=== PATIENT | female | born 1945 | race Caucasian/White ===

== ENCOUNTER → 2018-10-29 08:25 | Outpatient (CLI) | payer MEDICARE, SELFPAY ==
--- NOTE | 2018-10-29 08:31 | US_ITS ---
STUDY: RENAL ULTRASOUND - COMPLETE REASON FOR EXAM: Female, 73 years old. Chronic kidney disease TECHNIQUE: Ultrasound evaluation of the kidneys was performed with real-time and static gomez-scale imaging. COMPARISON: None available. FINDINGS: RIGHT KIDNEY: Normal location of the right kidney, which is normal in size. The right kidney measures 8 cm. Cortical thinning is present. There is no right renal mass or cyst. There are no right renal calculi. There is no right hydronephrosis. DISTAL RIGHT URETER: There is non-visualization of the distal right ureter. There is no demonstrated right ureterovesical junction calculus. There is a visualized right ureteral jet. LEFT KIDNEY: Normal location of the left kidney, which is normal in size. The left kidney measures 10 cm. Cortical thinning is present. There is a left renal 4.9 cm cyst. There are no left renal calculi. There is no left hydronephrosis. DISTAL LEFT URETER: There is non-visualization of the distal left ureter. There is no demonstrated left ureterovesical junction calculus. There is a visualized left ureteral jet. AORTA: No evidence of abdominal aortic aneurysm. I.V.C.: The IVC is patent. BLADDER: Mild diffuse bladder wall thickening is present. Probable fibroid incidentally noted in the pelvis measuring 4.2 x 4.5 x 4 cm. US/Kidney and Bladder IMPRESSION: No acute renal pathology. Bilateral renal cortical thinning and right renal atrophy. Left renal cyst. Mild urinary bladder wall thickening. Correlate clinically for hypertrophy or cystitis. Probable pelvic fibroid measuring 4.2 x 4.5 x 4 cm. If further clinical concern, consider dedicated pelvic ultrasound or MRI. Electronically Signed: Dipak Pedersen, at 17:05 EDT Tel , Service support ,
== END ==
PROVIDERS: Family Provider Family Medicine; PCP Family Medicine; Referring Provider Internal Medicine Nephrology; Visit Provider Internal Medicine Nephrology
DX: N18.4 Chronic kidney disease, stage 4 (severe) (principal)
CPT/HCPCS: 76770

== ENCOUNTER → 2019-03-24 10:04 | Outpatient (CLI) | payer MEDICARE, SELFPAY ==
[2019-03-24 11:02] LABS: Hematocrit 44.6 % (37-47); Hemoglobin 13.9 g/dL (12.0-15.0); Mean Corp Hgb Conc 31.2 g/dL (32-36); Mean Corpuscular Volume 89.7 fL (81-99); Platelet Count 241 K/mm3 (150-450); RBC Distribution Width CV 13.2 % (11.6-14.6); RBC Distribution Width SD 42.9 fl (35.1-43.9); Red Blood Count 4.97 M/mm3 (4.2-5.4); White Blood Count 5.1 K/mm3 (4.4-11.0)
[2019-03-24 11:49] LABS: Albumin, Serum 3.6 g/dL (3.2-5.0); BUN 41 mg/dL (7-18); BUN/Creat Ratio 20.8 RATIO (10-20); Calcium,Total 9.4 mg/dL (8.5-10.1); Chloride 107 mmol/L (98-107); Creatinine, Serum 1.97 mg/dL (0.55-1.02); EST Glomerular Filtration Rate 26 mL/min (>60); Est Glom Filt Rate - Afr Amer 32 mL/min (>60); Glucose 81 mg/dL (74-106); Potassium 4.5 mmol/L (3.5-5.1); Sodium Level 137 mmol/L (136-145)
[2019-03-24 11:55] LABS: PTHIN 89.1 pg/mL (18.4-80.1)
== END ==
LOC: LAB.FUTURE 10:05 → LAB 03-25 06:38
PROVIDERS: PCP Family Medicine; Referring Provider Internal Medicine Nephrology; Visit Provider Internal Medicine Nephrology
DX: N18.3 Chronic kidney disease, stage 3 (moderate) (principal)
CPT/HCPCS: 36415; 80069; 83970; 85027

== ENCOUNTER → 2019-04-08 10:07 | Outpatient (CLI) | payer MEDICARE, SELFPAY ==
[2019-04-08 10:54] LABS: Albumin, Serum 3.3 g/dL (3.2-5.0); BUN 32 mg/dL (7-18); Calcium,Total 9.1 mg/dL (8.5-10.1); Chloride 105 mmol/L (98-107); Creatinine, Serum 1.68 mg/dL (0.55-1.02); EST Glomerular Filtration Rate 32 mL/min (>60); Est Glom Filt Rate - Afr Amer 38 mL/min (>60); Glucose 91 mg/dL (74-106); Phosphorus 3.3 mg/dL (2.5-4.9); Potassium 4.6 mmol/L (3.5-5.1); Sodium Level 135 mmol/L (136-145)
== END ==
PROVIDERS: PCP Family Medicine; Referring Provider Internal Medicine Nephrology; Visit Provider Internal Medicine Nephrology
DX: N17.9 Acute kidney failure, unspecified (principal)
CPT/HCPCS: 36415; 80069

== ENCOUNTER → 2019-05-20 10:21 | Outpatient (CLI) | payer MEDICARE, SELFPAY ==
[2019-05-20 11:06] LABS: Hemoglobin 14.1 g/dL (12.0-15.0); Mean Corp Hgb Conc 31.3 g/dL (32-36); Mean Corpuscular Volume 89.3 fL (81-99); Mean Platelet Vol. 10.1 fl (6.2-12.0); Platelet Count 238 K/mm3 (150-450); RBC Distribution Width CV 13.5 % (11.6-14.6); RBC Distribution Width SD 44.2 fl (35.1-43.9); Red Blood Count 5.04 M/mm3 (4.2-5.4); White Blood Count 4.3 K/mm3 (4.4-11.0)
[2019-05-20 11:24] LABS: Protein, Urine (Random) 29.7 mg/dL (<11.9); Protein:Creat Ratio 223 mg/g CRE (0-200)
[2019-05-20 11:30] LABS: Albumin, Serum 3.6 g/dL (3.2-5.0); BUN 33 mg/dL (7-18); Calcium,Total 9.5 mg/dL (8.5-10.1); Chloride 104 mmol/L (98-107); Creatinine, Serum 1.74 mg/dL (0.55-1.02); EST Glomerular Filtration Rate 30 mL/min (>60); Est Glom Filt Rate - Afr Amer 37 mL/min (>60); Glucose 89 mg/dL (74-106); Phosphorus 3.4 mg/dL (2.5-4.9); Potassium 4.7 mmol/L (3.5-5.1); Sodium Level 137 mmol/L (136-145)
== END ==
LOC: LAB.FUTURE 10:22 → LAB 05-21 06:37
PROVIDERS: PCP Family Medicine; Referring Provider Internal Medicine Nephrology; Visit Provider Internal Medicine Nephrology
DX: N18.3 Chronic kidney disease, stage 3 (moderate) (principal)
CPT/HCPCS: 36415; 80069; 82570; 84156; 85027

== ENCOUNTER → 2019-07-24 10:02 | Outpatient (CLI) | payer MEDICARE, SELFPAY ==
[2019-07-24 12:38] LABS: Hematocrit 45.7 % (37-47); Hemoglobin 14.1 g/dL (12.0-15.0); Mean Corp Hgb Conc 30.9 g/dL (32-36); Mean Corpuscular Hgb 27.5 pg (27.0-32.0); Mean Corpuscular Volume 89.1 fL (81-99); Mean Platelet Vol. 9.9 fl (6.2-12.0); Platelet Count 278 K/mm3 (150-450); RBC Distribution Width CV 13.5 % (11.6-14.6); RBC Distribution Width SD 43.8 fl (35.1-43.9); Red Blood Count 5.13 M/mm3 (4.2-5.4); White Blood Count 4.2 K/mm3 (4.4-11.0)
[2019-07-24 12:39] LABS: Protein, Urine (Random) 23.4 mg/dL (<11.9); Protein:Creat Ratio 237 mg/g CRE (0-200)
[2019-07-24 12:52] LABS: Albumin, Serum 3.6 g/dL (3.2-5.0); BUN 45 mg/dL (7-18); BUN/Creat Ratio 23.4 RATIO (10-20); Calcium,Total 9.9 mg/dL (8.5-10.1); Chloride 103 mmol/L (98-107); Creatinine, Serum 1.92 mg/dL (0.55-1.02); EST Glomerular Filtration Rate 27 mL/min (>60); Est Glom Filt Rate - Afr Amer 33 mL/min (>60); Glucose 82 mg/dL (74-106); Potassium 4.7 mmol/L (3.5-5.1); Sodium Level 135 mmol/L (136-145)
[2019-07-24 13:02] LABS: PTHIN 85.5 pg/mL (18.4-80.1)
== END ==
PROVIDERS: PCP Family Medicine; Referring Provider Internal Medicine Nephrology; Visit Provider Internal Medicine Nephrology
DX: N17.9 Acute kidney failure, unspecified (principal); N18.3 Chronic kidney disease, stage 3 (moderate)
CPT/HCPCS: 36415; 80069; 82570; 83970; 84156; 85027

== ENCOUNTER → 2019-09-08 09:36 | Outpatient (CLI) | payer MEDICARE, SELFPAY ==
[2019-09-08 10:51] LABS: Albumin, Serum 3.3 g/dL (3.2-5.0); BUN 32 mg/dL (7-18); BUN/Creat Ratio 19.5 RATIO (10-20); Calcium,Total 8.8 mg/dL (8.5-10.1); Chloride 108 mmol/L (98-107); Creatinine, Serum 1.64 mg/dL (0.55-1.02); EST Glomerular Filtration Rate 32 mL/min (>60); Est Glom Filt Rate - Afr Amer 39 mL/min (>60); Glucose 103 mg/dL (74-106); Phosphorus 2.7 mg/dL (2.5-4.9); Potassium 4.1 mmol/L (3.5-5.1); Sodium Level 138 mmol/L (136-145)
== END ==
PROVIDERS: PCP Family Medicine; Referring Provider Internal Medicine Nephrology; Visit Provider Internal Medicine Nephrology
DX: N18.3 Chronic kidney disease, stage 3 (moderate) (principal)
CPT/HCPCS: 36415; 80069

== ENCOUNTER → 2019-12-11 09:27 | Outpatient (CLI) | payer MEDICARE, SELFPAY ==
[2019-12-11 10:38] LABS: Albumin, Serum 3.6 g/dL (3.2-5.0); BUN 33 mg/dL (7-18); BUN/Creat Ratio 18.3 RATIO (10-20); Calcium,Total 9.2 mg/dL (8.5-10.1); Chloride 107 mmol/L (98-107); EST Glomerular Filtration Rate 29 mL/min (>60); Est Glom Filt Rate - Afr Amer 35 mL/min (>60); Glucose 95 mg/dL (74-106); Phosphorus 2.8 mg/dL (2.5-4.9); Potassium 4.3 mmol/L (3.5-5.1); Sodium Level 137 mmol/L (136-145)
== END ==
PROVIDERS: PCP Family Medicine; Referring Provider Internal Medicine Nephrology; Visit Provider Internal Medicine Nephrology
DX: N18.30 Chronic kidney disease, stage 3 unspecified (principal)
CPT/HCPCS: 36415; 80069; 83970

== ENCOUNTER → 2020-08-25 14:17 | Outpatient (CLI) | payer MEDICARE, SELFPAY ==
[2020-08-25 16:09] LABS: Protein, Urine (Random) 9.9 mg/dL (<11.9); Protein:Creat Ratio 102 mg/g CRE (0-200)
[2020-08-25 16:17] LABS: PTHIN 61.6 pg/mL (18.4-80.1)
[2020-08-25 16:23] LABS: Albumin, Serum 3.7 g/dL (3.2-5.0); BUN 38 mg/dL (7-18); BUN/Creat Ratio 20.9 RATIO (10-20); Calcium,Total 9.9 mg/dL (8.5-10.1); Chloride 102 mmol/L (98-107); Creatinine, Serum 1.82 mg/dL (0.55-1.02); EST Glomerular Filtration Rate 29 mL/min (>60); Est Glom Filt Rate - Afr Amer 35 mL/min (>60); Glucose 83 mg/dL (74-106); Potassium 4.5 mmol/L (3.5-5.1); Sodium Level 136 mmol/L (136-145)
== END ==
PROVIDERS: PCP Family Medicine; Referring Provider Internal Medicine Nephrology; Visit Provider Internal Medicine Nephrology
DX: I12.9 Hypertensive chronic kidney disease with stage 1 through stage 4 chronic kidney disease, or unspecified chronic kidney disease (principal); N18.32 Chronic kidney disease, stage 3b
CPT/HCPCS: 36415; 80069; 82570; 83970; 84156

== ENCOUNTER 2021-06-01 10:07 | Outpatient (CLI) | payer MEDICARE, SELFPAY ==
[2021-06-01 11:35] LABS: Anion Gap 4 (5-15); BUN 31 mg/dL (7-18); BUN/Creat Ratio 19.6 RATIO (10-20); Calcium,Total 9.7 mg/dL (8.5-10.1); Chloride 107 mmol/L (98-107); Creatinine, Serum 1.58 mg/dL (0.55-1.02); EST Glomerular Filtration Rate 34 mL/min (>60); Est Glom Filt Rate - Afr Amer 41 mL/min (>60); Glucose 95 mg/dL (74-106); Potassium 4.7 mmol/L (3.5-5.1); Sodium Level 136 mmol/L (136-145)
== END 2021-06-01 23:59 | disposition home or self-care (01) ==
LOC: LAB 10:09
PROVIDERS: PCP Family Medicine; Referring Provider Internal Medicine Nephrology; Visit Provider Internal Medicine Nephrology
DX: I10 Essential (primary) hypertension (principal)
CPT/HCPCS: 36415; 80048

== ENCOUNTER → 2022-02-06 | Outpatient (CLI) | payer MEDICARE, SELFPAY ==
[2022-02-06 12:06] LABS: Hematocrit 44.2 % (37-47); Hemoglobin 13.7 g/dL (12.0-15.0); Mean Corpuscular Volume 90.4 fL (81-99); Mean Platelet Vol. 9.7 fl (6.2-12.0); Platelet Count 255 K/mm3 (150-450); RBC Distribution Width CV 14.2 % (11.6-14.6); RBC Distribution Width SD 47.4 fl (35.1-43.9); Red Blood Count 4.89 M/mm3 (4.2-5.4); White Blood Count 4.9 K/mm3 (4.4-11.0)
[2022-02-06 12:32] LABS: PTHIN 74.2 pg/mL (18.4-80.1)
[2022-02-06 12:34] LABS: Albumin, Serum 3.6 g/dL (3.2-5.0); BUN 26 mg/dL (7-18); BUN/Creat Ratio 15.4 RATIO (10-20); Chloride 106 mmol/L (98-107); Creatinine, Serum 1.69 mg/dL (0.55-1.02); EST Glomerular Filtration Rate 31 mL/min (>60); Est Glom Filt Rate - Afr Amer 38 mL/min (>60); Glucose 108 mg/dL (74-106); Phosphorus 2.8 mg/dL (2.5-4.9); Potassium 4.7 mmol/L (3.5-5.1); Sodium Level 137 mmol/L (136-145)
== END | disposition home or self-care (01) ==
LOC: LAB 11:28
PROVIDERS: PCP Family Medicine; Referring Provider Internal Medicine Nephrology; Visit Provider Internal Medicine Nephrology
DX: N18.32 Chronic kidney disease, stage 3b (principal)
CPT/HCPCS: 36415; 80069; 83970; 85027

== ENCOUNTER → 2023-02-01 | Outpatient (CLI) | payer MEDICARE, SELFPAY ==
[2023-02-01 12:48] LABS: Hematocrit 42.3 % (37-47); Hemoglobin 12.9 g/dL (12.0-15.0); Mean Corp Hgb Conc 30.5 g/dL (32-36); Mean Corpuscular Hgb 26.1 pg (27.0-32.0); Mean Corpuscular Volume 85.5 fL (81-99); Mean Platelet Vol. 10.1 fl (6.2-12.0); Platelet Count 273 K/mm3 (150-450); RBC Distribution Width CV 14.2 % (11.6-14.6); Red Blood Count 4.95 M/mm3 (4.2-5.4); White Blood Count 4.9 K/mm3 (4.4-11.0)
[2023-02-01 13:20] LABS: PTHIN 94.9 pg/mL (18.4-80.1)
[2023-02-01 15:12] LABS: Albumin, Serum 3.6 g/dL (3.2-5.0); BUN 30 mg/dL (7-18); BUN/Creat Ratio 17.9 RATIO (10-20); Calcium,Total 9.7 mg/dL (8.5-10.1); Chloride 106 mmol/L (98-107); Creatinine, Serum 1.68 mg/dL (0.55-1.02); EST Glomerular Filtration Rate 31 mL/min (>60); Est Glom Filt Rate - Afr Amer 38 mL/min (>60); Glucose 91 mg/dL (74-106); Phosphorus 3.1 mg/dL (2.5-4.9); Sodium Level 135 mmol/L (136-145)
== END | disposition home or self-care (01) ==
PROVIDERS: PCP Family Medicine; Referring Provider Internal Medicine Nephrology; Visit Provider Internal Medicine Nephrology
DX: N18.32 Chronic kidney disease, stage 3b (principal)
CPT/HCPCS: 36415; 80069; 83970; 85027

== ENCOUNTER → 2024-02-06 | Outpatient (CLI) | payer MEDICARE, SELFPAY ==
[2024-02-06 12:38] LABS: Hemoglobin 13.1 g/dL (12.0-15.0); Mean Corp Hgb Conc 31.2 g/dL (32-36); Mean Corpuscular Hgb 28.4 pg (27.0-32.0); Mean Corpuscular Volume 91.1 fL (81-99); Mean Platelet Vol. 9.2 fl (6.2-12.0); Platelet Count 227 K/mm3 (150-450); RBC Distribution Width SD 43.4 fl (35.1-43.9); Red Blood Count 4.61 M/mm3 (4.2-5.4); White Blood Count 5.5 K/mm3 (4.4-11.0)
[2024-02-06 13:23] LABS: PTHIN 101.3 pg/mL (18.4-80.1)
[2024-02-06 13:35] LABS: Albumin, Serum 3.7 g/dL (3.2-5.0); BUN 27 mg/dL (7-18); BUN/Creat Ratio 16.3 RATIO (10-20); Chloride 107 mmol/L (98-107); Creatinine, Serum 1.66 mg/dL (0.55-1.02); EST Glomerular Filtration Rate 32 mL/min (>60); Est Glom Filt Rate - Afr Amer 38 mL/min (>60); Glucose 110 mg/dL (74-106); Phosphorus 2.9 mg/dL (2.5-4.9); Potassium 4.8 mmol/L (3.5-5.1); Sodium Level 137 mmol/L (136-145)
== END | disposition home or self-care (01) ==
LOC: POLAB3 12:31
PROVIDERS: PCP Family Medicine; Referring Provider Internal Medicine Nephrology; Visit Provider Internal Medicine Nephrology
DX: N18.32 Chronic kidney disease, stage 3b (principal)
CPT/HCPCS: 36415; 80069; 83970; 85027

== ENCOUNTER → 2024-04-08 | Outpatient (CLI) | payer MEDICARE, SELFPAY ==
[2024-04-08 16:15] LABS: Absolute Lymphocyte Count 0.61 X10^3/uL (0.83-4.51); Absolute Neutrophil Count 4.4 X10^3/uL (2.0-7.7); Basophil# 0.03 X10^3/uL; Basophil% 0.5 % (0-1); Eosinophil# 0.11 X10^3/uL; Hematocrit 39.2 % (37-47); Hemoglobin 12.4 g/dL (12.0-15.0); Lymphocyte # 0.61 X10^3/ul (0.83-4.51); Mean Corp Hgb Conc 31.6 g/dL (32-36); Mean Corpuscular Hgb 27.5 pg (27.0-32.0); Mean Corpuscular Volume 86.9 fL (81-99); Mean Platelet Vol. 9.3 fl (6.2-12.0); Monocyte# 0.42 X10^3/uL; Monocyte% 7.6 % (0-10); NRBC Flagged by Analyzer 0 % (0-5); Neutrophil # 4.35 X10^3/uL (2.7-7.7); Neutrophil % 78.5 % (47-70); Platelet Count 284 K/mm3 (150-450); RBC Distribution Width CV 12.6 % (11.6-14.6); RBC Distribution Width SD 39.9 fl (35.1-43.9); Red Blood Count 4.51 M/mm3 (4.2-5.4); White Blood Count 5.5 K/mm3 (4.4-11.0)
[2024-04-08 16:38] LABS: Vitamin D,25 Hydroxy 28.8 ng/mL
[2024-04-08 16:51] LABS: ALB/GLOB Ratio 0.9 RATIO (0.9-2.4); AST(SGOT) 18 U/L (15-37); Alanine Aminotransfer ALT/SGPT 14 U/L (13-56); Albumin, Serum 3.7 g/dL (3.2-5.0); Alkaline Phosphatase 118 U/L (45-117); Anion Gap 8 (5-15); BUN 27 mg/dL (7-18); BUN/Creat Ratio 17.6 RATIO (10-20); Calcium,Total 9.5 mg/dL (8.5-10.1); Chloride 104 mmol/L (98-107); Creatinine, Serum 1.53 mg/dL (0.55-1.02); EST Glomerular Filtration Rate 35 mL/min (>60); Est Glom Filt Rate - Afr Amer 42 mL/min (>60); Glucose 103 mg/dL (74-106); Potassium 4.7 mmol/L (3.5-5.1); Protein, Total 7.7 g/dL (6.4-8.2); Sodium Level 137 mmol/L (136-145)
[2024-04-09 03:37] LABS: Hepatitis C Antibody Non-Reactive (Nonreactive)
== END | disposition home or self-care (01) ==
LOC: LAB 15:40
PROVIDERS: PCP Family Medicine; Referring Provider Family Medicine Geriatric Medicine; Visit Provider Family Medicine Geriatric Medicine
DX: I10 Essential (primary) hypertension (principal); E55.9 Vitamin D deficiency, unspecified; Z13.89 Encounter for screening for other disorder
CPT/HCPCS: 36415; 80053; 82306; 84443; 85025; 86803

== ENCOUNTER → 2024-10-06 | Outpatient (CLI) | payer MEDICARE, SELFPAY ==
[2024-10-06 16:23] LABS: Hematocrit 42.8 % (37-47); Hemoglobin 13.5 g/dL (12.0-15.0); Immature Granulocytes Count 0.020 X10^3/uL (0.0-0.0); Mean Corp Hgb Conc 31.5 g/dL (32-36); Mean Corpuscular Volume 88.2 fL (81-99); Mean Platelet Vol. 10.1 fl (6.2-12.0); NRBC Flagged by Analyzer 0 % (0-5); POSITIVE DIFFERENTIAL YES; Platelet Count 268 K/mm3 (150-450); RBC Distribution Width CV 13.8 % (11.6-14.6); RBC Distribution Width SD 43.8 fl (35.1-43.9); Red Blood Count 4.85 M/mm3 (4.2-5.4); White Blood Count 4.9 K/mm3 (4.4-11.0)
[2024-10-06 17:26] LABS: AST(SGOT) 23 U/L (<=31); Alanine Aminotransfer ALT/SGPT 10 U/L (<=34); Albumin, Serum 4.4 g/dL (3.4-4.8); Alkaline Phosphatase 110 U/L (35-104); Anion Gap 14 (5-15); BUN 41 mg/dL (4-19); BUN/Creat Ratio 24.4 RATIO (10-20); Calcium,Total 10.3 mg/dL (7.6-11.0); Carbon Dioxide 22.0 mmol/L (21.0-32.0); Chloride 102 mmol/L (98-108); Globulin 2.9 g/dL (2.2-4.2); Glucose 82 mg/dL (70-99); Potassium 5.1 mmol/L (3.3-5.1); Vitamin D,25 Hydroxy 37.4 ng/mL (30-100)
== END | disposition home or self-care (01) ==
LOC: LAB 11:59
PROVIDERS: PCP Family Medicine; Referring Provider Family Medicine Geriatric Medicine; Visit Provider Family Medicine Geriatric Medicine
DX: I10 Essential (primary) hypertension (principal); E55.9 Vitamin D deficiency, unspecified
CPT/HCPCS: 36415; 80053; 82306; 84443; 85025

== ENCOUNTER → 2025-02-10 | Outpatient (CLI) | payer MEDICARE, SELFPAY ==
[2025-02-10 13:29] LABS: Anion Gap 11 (5-15); BUN 38 mg/dL (4-19); BUN/Creat Ratio 19.3 RATIO (10-20); Calcium,Total 9.6 mg/dL (7.6-11.0); Carbon Dioxide 20.8 mmol/L (21.0-32.0); Chloride 105 mmol/L (98-108); Glucose 114 mg/dL (70-99); Potassium 6.1 mmol/L (3.3-5.1)
== END | disposition home or self-care (01) ==
LOC: POLAB3 12:29
PROVIDERS: PCP Family Medicine Geriatric Medicine; Visit Provider Internal Medicine Nephrology
DX: E87.5 Hyperkalemia (principal)
CPT/HCPCS: 36415; 80048